=== PATIENT | female | born 1980 | race Caucasian/White ===

== ENCOUNTER → 2021-08-22 | Outpatient (CLI) | payer OTHER ==
[~2021-08-22] VITALS: Ht 172.7 cm; Wt 61.2 kg
[~2021-08-22] MED LIST: ALEVE220 M1 PO; B COMPLEX1 EACH PO; FISH OIL 1,0001 EAC9 PO; FLONASE 0.05%50 MCG NASAL; IPRATROPIUM BRO30 ML NASAL; LINZESS145 MCG PO; PROTONIX40 M4 PO; SPIRONOLACTONE100 M1 PO; SUPER THERAVIT1 EACH PO
== END | disposition home or self-care (01) ==
LOC: GI 07:56
PROVIDERS: ATTEND Internal Medicine Gastroenterology
DX: K92.1 Melena (principal); K64.8 Other hemorrhoids; R05.3 Chronic cough; F45.8 Other somatoform disorders; F32.9 Major depressive disorder, single episode, unspecified; F41.9 Anxiety disorder, unspecified; K21.9 Gastro-esophageal reflux disease without esophagitis; Z98.890 Other specified postprocedural states; Z79.899 Other long term (current) drug therapy; Z20.822 Contact with and (suspected) exposure to COVID-19; Z87.891 Personal history of nicotine dependence
CPT/HCPCS: 62110; 62900